=== PATIENT | female | born 1965 | race Caucasian/White ===

== ENCOUNTER → 2017-06-26 | Outpatient (CLI) | payer BC | LOC: CFH 12:07 | PROVIDERS: ATTEND Obstetrics & Gynecology | DX: Z12.31 Encounter for screening mammogram for malignant neoplasm of breast (principal) | CPT/HCPCS: 77067 ==

== ENCOUNTER → 2018-07-03 | Outpatient (CLI) | payer OTHER | END | disposition home or self-care (01) | LOC: CFH 11:17 | PROVIDERS: ATTEND Family Medicine | DX: Z12.31 Encounter for screening mammogram for malignant neoplasm of breast (principal) | CPT/HCPCS: 77063; 77067 ==